=== PATIENT | male | born 1985 | race African-American/Black ===

== ENCOUNTER 2019-07-26 05:45 | Emergency (ER) | payer OTHER, BC ==
[~2019-07-26] VITALS: Ht 180.3 cm; Wt 90.0 kg
[~2019-07-26 05:45] MED LIST: BACTRIM DS1 TAB OR; NO HOME MEDS
[2019-07-26 06:45] LABS: URINE BILIRUBIN - DIPSTICK NEGATIVE (NEGATIVE); URINE BLOOD DIPSTICK NEGATIVE (NEGATIVE); URINE COLOR YELLOW; URINE GLUCOSE - DIPSTICK NEGATIVE (NEGATIVE); URINE KETONE NEGATIVE (NEGATIVE); URINE LEUK ESTERASE NEGATIVE (Negative); URINE NITRITE - DIPSTICK NEGATIVE (Negative); URINE PROTEIN - DIPSTICK NEGATIVE (NEG-TRACE); URINE SPECIFIC GRAVITY <=1.005; URINE UROBILINOGEN - DIPSTICK 0.2 E.U./dL (0.2)
[2019-07-26 06:48] LABS: URINE CLARITY CLEAR
[2019-07-26] MEDS ORDERED: IBUPROFEN600 MG PO (07:29)
[2019-07-26] MEDS ORDERED: FLEXERIL5 M1 PO (07:29)
[2019-07-26 07:34] VITALS: BP 133/81
== END 2019-07-26 08:03 | disposition home or self-care (01) | DRG 563 ==
LOC: ED 05:45
PROVIDERS: Emergency Medicine
DX: S39.012A Strain of muscle, fascia and tendon of lower back, initial encounter (principal); V49.40XA Driver injured in collision with unspecified motor vehicles in traffic accident, initial encounter

== ENCOUNTER 2022-01-21 15:55 | Emergency (ER) | payer BC ==
[~2022-01-21] VITALS: Ht 180.3 cm; Wt 101.0 kg
[~2022-01-21 15:55] MED LIST changes: +FLEXERIL5 M1 PO; +IBUPROFEN600 MG PO
[2022-01-21 16:26] VITALS: BP 119/83
[2022-01-21 16:30] VITALS: BP 123/81
[2022-01-21 17:00] VITALS: BP 124/77
[2022-01-21 17:31] VITALS: BP 119/71
[2022-01-21 17:34] LABS: HEMATOCRIT 47.4 % (39.0-50.0); HEMOGLOBIN 15.8 g/dl (14.0-18.0); MEAN CELL VOLUME 92.6 fL CALC (80.0-100.0); MEAN CORPUSCULAR HGB 30.9 pG CALC (26.0-32.0); MEAN CORPUSCULAR HGB CONC 33.3 g/dL CAL (32.0-36.0); NEUT# 5.07 thou/uL (1.82-7.42); RED BLOOD COUNT 5.12 mill/uL (4.70-6.10); RED CELL DISTRI WIDTH 13.6 % (11.5-15.5)
[2022-01-21 17:46] LABS: ALBUMIN 4.7 g/dL (3.2-5.0); ALKALINE PHOSPHATASE 102 u/l (38-126); AMYLASE 62 u/l (30-110); BILIRUBIN, TOTAL 1.2 mg/dL (0.0-1.4); BUN 9 mg/dL (9-20); BUN/CREATININE RATIO 10 (12-20 (CALC)); CARBON DIOXIDE 28 mmol/l (22-30); CHLORIDE 101 mmol/l (95-108); CREATININE 0.9 mg/dL (0.7-1.3); GFR > 60 ML/MIN (>=60 (CALC)); GFR FOR AFR.AMER. > 60 ML/MIN (>=60 (CALC)); LIPASE 72 u/l (23-300); SGOT/AST 29 u/l (17-59); SODIUM 137 mmol/l (137-146); TOTAL PROTEIN 8.7 g/dL (6.3-8.2)
[2022-01-21 17:48] LABS: ANION GAP 12 (6-22 (CALC)); POTASSIUM 3.7 mmol/l (3.5-5.1)
[2022-01-21 17:58] LABS: MYOGLOBIN 24 ng/mL (0 - 121)
[2022-01-21 18:01] VITALS: BP 124/76
[2022-01-21 18:57] LABS: URINE BILIRUBIN - DIPSTICK NEGATIVE (NEGATIVE); URINE BLOOD DIPSTICK NEGATIVE (NEGATIVE); URINE COLOR YELLOW; URINE GLUCOSE - DIPSTICK NEGATIVE (NEGATIVE); URINE KETONE NEGATIVE (NEGATIVE); URINE LEUK ESTERASE NEGATIVE (NEGATIVE); URINE PROTEIN - DIPSTICK NEGATIVE (NEG-TRACE); URINE UROBILINOGEN - DIPSTICK 0.2 E.U./dL (0.2)
[2022-01-21 19:01] LABS: URINE NITRITE - DIPSTICK NEGATIVE (Negative)
[2022-01-21] MEDS ORDERED: SENNA LAXATIVE8.6 MG PO (19:42)
[2022-01-21] MEDS ORDERED: MIRALAX17 GM/SCOO PO (19:42)
[2022-01-21 20:03] VITALS: BP 124/76
== END 2022-01-21 20:04 | disposition home or self-care (01) | DRG 392 ==
LOC: ED 15:55
PROVIDERS: Nurse Practitioner
DX: K59.00 Constipation, unspecified (principal)
CPT/HCPCS: Q9967